=== PATIENT | male | born 1950 | race Caucasian/White ===

== ENCOUNTER 2022-09-18 06:25 | Inpatient (IN) | payer OTHER ==
[~2022-09-18] VITALS: Ht 185.4 cm; Wt 105.5 kg
[~2022-09-18 06:25] MED LIST: ALL300T PO
[2022-09-18] MEDS ORDERED: ROCURONIUM 10MG/ML 10ML VIAL IV ONE ×2 (06:51→08:46)
[2022-09-18] MEDS ORDERED: SUCCINYLCHOLINE CHLORIDE 20 MG/ML 10ML VIAL IV ONE (06:51)
[2022-09-18] MEDS ORDERED: VANCOMYCIN HCL 1000 MG VL ONE (06:51)
[2022-09-18] MEDS ORDERED: DOXAPRAM HCL 20 MG/ML 20ML VIAL INJ IV ONE (06:51)
[2022-09-18] MEDS ORDERED: BUPIVACAINE 0.25% INJ 50ML VIAL ONE (06:52)
[2022-09-18] MEDS ORDERED: TRANEXAMIC ACID 20 ML ONE (06:52)
[2022-09-18] MEDS ORDERED: MIDAZOLAM HCL 2MG/2ML 2ml VIAL (1mg/ml) ONE (06:53)
[2022-09-18] MEDS ORDERED: PROPOFOL 10 MG/ML 20 ML IV ONE (06:53)
[2022-09-18] MEDS ORDERED: GLYCOPYRROLATE 0.2 MG/ML 1ML VIAL ONE (06:53)
[2022-09-18] MEDS ORDERED: DexAMETHasone SOD PHOS 10MG/1ML VIAL INJ ONE (06:53)
[2022-09-18] MEDS ORDERED: SODIUM CHLORIDE LOCK 10 ML ONE (06:53)
[2022-09-18] MEDS ORDERED: NEOSTIGMINE 1 MG/ML INJ (10mg/10ML VIAL) ONE (06:53)
[2022-09-18] MEDS ORDERED: HYDROmorphone HCL 2 MG/ML VL/or syr ONE (06:53)
[2022-09-18] MEDS ORDERED: ONDANSETRON HCL 4 MG/2 ML VIAL ONE (06:53)
[2022-09-18] MEDS ORDERED: fentaNYL CITRATE 100 MCG/2 ML VL ONE (06:53)
[2022-09-18] MEDS ORDERED: MORPHINE SULF PF 5 MG/10 ML VIAL ONE (06:55)
[2022-09-18] MEDS ORDERED: ceFAZolin 1GM/50ML 100 ML IV ONE (07:03)
[2022-09-18] MEDS ORDERED: DexAMETHasone SOD PHOS 4 MG/1ML SDV INJ ONE (07:05)
[2022-09-18] MEDS ORDERED: LIDOCAINE W/ EPINEPHRINE 2% INJ 20ML VIAL ONE (07:05)
[2022-09-18] MEDS ORDERED: BUPIVACAINE 0.5% P/F INJ 10 ML VIAL ONE (07:05)
[2022-09-18] MEDS ORDERED: METOCLOPRAMIDE HCL 5MG/ml INJ 2ml VIAL IV PRN (07:30)
[2022-09-18] MEDS ORDERED: MORPHINE SULFATE INJ 2 MG/ml SYRG IV PRN ×2 (07:30→10:30)
[2022-09-18] MEDS ORDERED: HYDROmorphone HCL 2 MG/ML VL/or syr IV PRN ×3 (07:30→10:30)
[2022-09-18] MEDS ORDERED: CLINDAMYCIN 600MG IV 50 ML IV ONE (07:47)
[2022-09-18] MEDS ORDERED: SUGAMMADEX 200mg/2ml Vial (100MG/ML) IV ONE (09:49)
[2022-09-18] MEDS ORDERED: ONDANSETRON HCL 4 MG/2 ML VIAL IV PRN (10:30)
[2022-09-18] MEDS ORDERED: LACTATED RINGER'S 1,000 ML IV SCH (10:30)
[2022-09-18] MEDS ORDERED: ceFAZolin 1GM/50ML 50 ML IV SCH (10:30)
[2022-09-18] MEDS ORDERED: ACETAMINOPHEN 325 MG TAB PO PRN (10:30)
[2022-09-18] MEDS ORDERED: NITROGLYCERIN 0.4 MG SL TAB SL PRN (10:30)
[2022-09-18] MEDS ORDERED: NITROGLYCERIN 5MG/ML 10ML VIAL IV ONE (12:15)
[2022-09-18] MEDS: ceFAZolin 1GM/50ML 50 ML IV SCH ×2 (13:58→20:15)
[2022-09-18 20:17] LABS: Calcium 8.5 mg/dL (8.5-10.1); Potassium 4.9 mmol/L (3.5-5.1)
[2022-09-18 20:20] LABS: BUN/Creatinine Ratio 17.4
[2022-09-18 22:00] VITALS: BP 97/62
[2022-09-18] MEDS: DOCUSATE SOD 100 MG CAP PO SCH (22:26)
[2022-09-18] MEDS: HYDROcodone-ACET 5/325MG TAB PO PRN (23:35)
[2022-09-19] MEDS: ceFAZolin 1GM/50ML 50 ML IV SCH (02:06)
[2022-09-19] MEDS: HYDROcodone-ACET 5/325MG TAB PO PRN ×3 (03:35→13:46)
[2022-09-19 05:00] VITALS: BP 108/76
[2022-09-19 07:03] LABS: Hematocrit 36.9 % (41.0-53.0); Hemoglobin 12.5 g/dL (13.5-17.5)
[2022-09-19 07:06] LABS: Calcium 8.6 mg/dL (8.5-10.1); Potassium 4.2 mmol/L (3.5-5.1)
[2022-09-19 07:09] LABS: BUN/Creatinine Ratio 21.6
[2022-09-19 07:11] LABS: Total Protein 5.5 g/dL (6.4-8.2)
[2022-09-19 08:28] VITALS: BP 94/60
[2022-09-19] MEDS: DOCUSATE SOD 100 MG CAP PO SCH (09:22)
[2022-09-19] MEDS ORDERED: ALLOPURINOL 300 MG TAB PO SCH (10:00)
[2022-09-19 12:15] VITALS: BP 109/73
== END 2022-09-19 15:55 | disposition home or self-care (01) | DRG 483 ==
LOC: SUR 06:25 → OVERFLOW 10:36 → TELE-WESTW 18:05
PROVIDERS: ADMIT Orthopaedic Surgery Sports Medicine; ATTEND Orthopaedic Surgery Sports Medicine
PROC: 0RRJ00Z Replacement of Right Shoulder Joint with Reverse Ball and Socket Synthetic Substitute, Open Approach (ICD-10-PCS; principal; 2022-09-18 07:27)
DX: M75.121 Complete rotator cuff tear or rupture of right shoulder, not specified as traumatic (principal); Z20.822 Contact with and (suspected) exposure to COVID-19
CPT/HCPCS: 36415; 73020; 76000; 80048; 80053; 85014; 85018; 86850; 86900; 86901; 97163; G0378; J0330; J0690; J1100; J2250; J2405; J2704; J3490